=== PATIENT | female | born 1985 | race Caucasian/White ===

== ENCOUNTER 2016-08-16 16:05 | Emergency (ER) | payer MEDICAID, SELFPAY ==
[2016-08-16] MEDS ORDERED: Naproxen 500 MG TAB ONE (18:56)
[2016-08-16] MEDS ORDERED: HYDROcodone/Acetaminophen 10/325 mg Tablet ONE (18:56)
[2016-08-16] MEDS ORDERED: Benzonatate 100 MG CAP ONE (18:56)
[2016-08-16] MEDS ORDERED: AMOXicillin 250 MG CAP ONE (18:56)
== END 2016-08-16 19:22 | disposition home or self-care (01) ==
LOC: MADERS 16:05
DX: J20.9 Acute bronchitis, unspecified (principal); I25.10 Atherosclerotic heart disease of native coronary artery without angina pectoris; I11.0 Hypertensive heart disease with heart failure; I50.9 Heart failure, unspecified; F41.9 Anxiety disorder, unspecified; F32.9 Major depressive disorder, single episode, unspecified
CPT/HCPCS: 99283

== ENCOUNTER 2016-10-28 15:06 | Emergency (ER) | payer MEDICAID ==
[2016-10-28] MEDS ORDERED: Acetaminophen/Codeine 30-300mg Tablet ONE ×2 (15:51)
== END 2016-10-28 16:03 | disposition home or self-care (01) ==
LOC: MADERS 15:06
DX: M54.41 Lumbago with sciatica, right side (principal); E66.9 Obesity, unspecified; I25.10 Atherosclerotic heart disease of native coronary artery without angina pectoris; I11.0 Hypertensive heart disease with heart failure; I50.9 Heart failure, unspecified; Z86.711 Personal history of pulmonary embolism; F41.9 Anxiety disorder, unspecified; F32.9 Major depressive disorder, single episode, unspecified; Z79.899 Other long term (current) drug therapy
CPT/HCPCS: 99283

== ENCOUNTER 2016-11-07 15:05 | Emergency (ER) | payer MEDICAID ==
[2016-11-07 16:18] LABS: Pregnancy Test - Urine (BHCG) Negative (Negative); Pregu Control Background? CLEAR/WHITE (CLR/WHITE); Pregu Control Bar Appear? YES (CONTROL BAR); Specific Gravity 1.025 (1.002-1.036)
[2016-11-07 16:20] LABS: Wet Prep Clue Cells Clue Cells Absent (None Seen); Wet Prep Trichomonas Trichomonas Absent (None Seen)
[2016-11-07 16:21] LABS: Wet Prep Pathologist Review Spermatozoa Absent (None Seen); Wet Prep Spermatozoa 2nd Revie Agree with result (None Seen)
[2016-11-07] MEDS ORDERED: cefTRIAXone\\ROCEPHIN 1 GM VIAL ONE (16:24)
[2016-11-07] MEDS ORDERED: Lidocaine 1% 20 ML MDV ONE (16:24)
[2016-11-07 16:28] LABS: Bilirubin Negative (Negative); Blood, Urine Negative (Negative); Clarity Hazy (Clear); Glucose, Urine (Dipstick) Negative (Negative); Leukocyte Trace (Negative); Nitrite Negative (Negative); Protein, Urine (Dipstick) Negative (Neg-Trace); Specific Gravity, Urine 1.025 (1.005-1.030); Urobilinogen 0.2 mg/dL (0.2-1.0); pH, Urine 5.5 (5.0-9.0)
[2016-11-07 16:29] LABS: Bacteria/HPF 3+ HPF (None Seen); RBC/HPF 0-3 HPF (0-3)
[2016-11-10 22:59] LABS: Chlamydia by PCR Not Detected (NotDetected); GC by PCR Not Detected (NotDetected)
== END 2016-11-07 17:30 | disposition home or self-care (01) ==
LOC: MADERS 15:05
DX: N73.9 Female pelvic inflammatory disease, unspecified (principal); I25.10 Atherosclerotic heart disease of native coronary artery without angina pectoris; I11.0 Hypertensive heart disease with heart failure; I50.9 Heart failure, unspecified; I42.0 Dilated cardiomyopathy; F41.0 Panic disorder [episodic paroxysmal anxiety]; F32.9 Major depressive disorder, single episode, unspecified; Z79.899 Other long term (current) drug therapy
CPT/HCPCS: 81003; 81015; 81025; 87077; 87086; 87186; 87210; 87491; 87591; 96372; J0696; J2001

== ENCOUNTER 2016-12-20 17:25 | Emergency (ER) | payer OTHER ==
[2016-12-20] MEDS ORDERED: Acetaminophen 325 MG TAB ONE (18:27)
--- NOTE | 2016-12-20 18:50 | RAD ---
RIGHT HIP TWO VIEWS: History: Hip pain. FINDINGS: No evidence of fracture. Femoral head contour is normal. No significant degenerative change. IMPRESSION: No acute abnormality identified. POS: [facility]
== END 2016-12-20 19:15 | disposition home or self-care (01) ==
LOC: MADERS 17:25
DX: R10.31 Right lower quadrant pain (principal); E66.9 Obesity, unspecified; I25.10 Atherosclerotic heart disease of native coronary artery without angina pectoris; I11.0 Hypertensive heart disease with heart failure; I42.9 Cardiomyopathy, unspecified; I50.20 Unspecified systolic (congestive) heart failure; Z86.711 Personal history of pulmonary embolism; F41.0 Panic disorder [episodic paroxysmal anxiety]; F32.9 Major depressive disorder, single episode, unspecified

== ENCOUNTER 2017-08-29 16:00 | Emergency (ER) | payer OTHER | END 2017-08-29 16:51 | disposition home or self-care (01) | LOC: MADERS 16:00 | DX: S46.811A Strain of other muscles, fascia and tendons at shoulder and upper arm level, right arm, initial encounter (principal); S16.1XXA Strain of muscle, fascia and tendon at neck level, initial encounter; E66.9 Obesity, unspecified; I25.10 Atherosclerotic heart disease of native coronary artery without angina pectoris; I11.0 Hypertensive heart disease with heart failure; I50.20 Unspecified systolic (congestive) heart failure; F41.9 Anxiety disorder, unspecified; F32.9 Major depressive disorder, single episode, unspecified; X58.XXXA Exposure to other specified factors, initial encounter; Y93.H2 Activity, gardening and landscaping | CPT/HCPCS: 99283 ==

== ENCOUNTER 2017-09-13 16:59 | Emergency (ER) | payer OTHER | END 2017-09-13 20:33 | disposition home or self-care (01) | LOC: MADERS 16:59 | DX: J06.9 Acute upper respiratory infection, unspecified (principal); I25.10 Atherosclerotic heart disease of native coronary artery without angina pectoris; E66.9 Obesity, unspecified; I11.0 Hypertensive heart disease with heart failure; I50.9 Heart failure, unspecified; Z86.711 Personal history of pulmonary embolism | CPT/HCPCS: 87081; 87430; 99283 ==

== ENCOUNTER 2017-11-11 15:06 | Emergency (ER) | payer OTHER ==
--- NOTE | 2017-11-11 15:51 | RAD ---
TWO VIEWS CHEST: Comparison: 01-01-16 History: Cough for three weeks. FINDINGS: Two views of the chest show normal sized cardiomediastinal silhouette. There is no evidence of consol idation, mass, or pleural effusion. The bones are unremarkable. IMPRESSION: No evidence of acute cardiopulmonary disease. POS: [facility]
--- NOTE | 2017-11-11 16:11 | RAD ---
SINGLE WATER'S VIEW OF THE SINUSES: Comparison: None. History: Cough with sinus pressure and drainage for three weeks. FINDINGS: A single water's view of the sinuses shows no evidence of sinus opacification. The maxillary and fron bouchra sinuses are well aerated. The density of the bones surrounding the sinuses are normal without sig nificant sclerotic change. IMPRESSION: No evidence of sinus opacification. POS: [facility]
== END 2017-11-11 16:00 | disposition home or self-care (01) ==
LOC: MADERS 15:06
DX: J45.909 Unspecified asthma, uncomplicated (principal); J32.9 Chronic sinusitis, unspecified; E66.9 Obesity, unspecified; I25.10 Atherosclerotic heart disease of native coronary artery without angina pectoris; I11.0 Hypertensive heart disease with heart failure; I50.9 Heart failure, unspecified; Z86.711 Personal history of pulmonary embolism; F41.9 Anxiety disorder, unspecified; F32.9 Major depressive disorder, single episode, unspecified; Z79.899 Other long term (current) drug therapy
CPT/HCPCS: 70210; 71046

== ENCOUNTER 2017-12-21 17:00 | Emergency (ER) | payer OTHER ==
[2017-12-21] MEDS ORDERED: Acetaminophen/Codeine 30-300mg Tablet ONE (17:37)
[2017-12-21] MEDS ORDERED: Cyclobenzaprine 10 MG TAB ONE (17:37)
== END 2017-12-21 17:40 | disposition home or self-care (01) ==
LOC: MADERS 17:00
DX: S39.012A Strain of muscle, fascia and tendon of lower back, initial encounter (principal); I11.0 Hypertensive heart disease with heart failure; I50.9 Heart failure, unspecified; F32.9 Major depressive disorder, single episode, unspecified; F41.0 Panic disorder [episodic paroxysmal anxiety]; F17.210 Nicotine dependence, cigarettes, uncomplicated; E66.9 Obesity, unspecified; I25.10 Atherosclerotic heart disease of native coronary artery without angina pectoris; Z79.891 Long term (current) use of opiate analgesic; Z79.899 Other long term (current) drug therapy; X50.1XXA Overexertion from prolonged static or awkward postures, initial encounter
CPT/HCPCS: 99283

== ENCOUNTER 2018-03-22 15:45 | Emergency (ER) | payer OTHER ==
[2018-03-22 16:21] LABS: Pregu Control Background? CLEAR/WHITE (CLR/WHITE); Pregu Control Bar Appear? YES (CONTROL BAR); Specific Gravity 1.028 (1.002-1.036)
[2018-03-22 16:23] LABS: Pregnancy Test - Urine (BHCG) Negative (Negative)
[2018-03-22] MEDS ORDERED: Dexamethasone 4 MG TAB ONE (16:50)
[2018-03-22] MEDS ORDERED: Benzonatate 100 MG CAP ONE (16:50)
--- NOTE | 2018-03-22 17:39 | RAD ---
CHEST TWO VIEWS 03/22/18 COMPARISON: 11/11/17. HISTORY: Cough. FINDINGS: Normal cardiac silhouette. Pulmonary vessels and hilum are normal. Costophrenic angles are clear. No consolidation or mass. No pneumothorax or osseous abnormalities. IMPRESSION: No acute cardiopulmonary process. POS: [facility]
== END 2018-03-22 16:55 | disposition home or self-care (01) ==
LOC: MADERS 15:45
DX: J40 Bronchitis, not specified as acute or chronic (principal); E66.9 Obesity, unspecified; I25.10 Atherosclerotic heart disease of native coronary artery without angina pectoris; I11.0 Hypertensive heart disease with heart failure; I50.9 Heart failure, unspecified; Z86.711 Personal history of pulmonary embolism; F32.9 Major depressive disorder, single episode, unspecified; F41.0 Panic disorder [episodic paroxysmal anxiety]; Z79.899 Other long term (current) drug therapy
CPT/HCPCS: 71046; 81025; J8540

== ENCOUNTER 2018-10-26 15:22 | Emergency (ER) | payer OTHER ==
[2018-10-26] MEDS ORDERED: Cyclobenzaprine 10 MG TAB ONE (15:46)
== END 2018-10-26 16:06 | disposition home or self-care (01) ==
LOC: MADERS 15:22
DX: S16.1XXA Strain of muscle, fascia and tendon at neck level, initial encounter (principal); I25.10 Atherosclerotic heart disease of native coronary artery without angina pectoris; I11.0 Hypertensive heart disease with heart failure; I50.9 Heart failure, unspecified; F41.0 Panic disorder [episodic paroxysmal anxiety]; F32.9 Major depressive disorder, single episode, unspecified; E66.9 Obesity, unspecified; Z79.51 Long term (current) use of inhaled steroids; Z86.711 Personal history of pulmonary embolism; Z79.891 Long term (current) use of opiate analgesic; Z79.899 Other long term (current) drug therapy; X50.1XXA Overexertion from prolonged static or awkward postures, initial encounter
CPT/HCPCS: 99283

== ENCOUNTER 2020-06-07 19:00 | Emergency (ER) | payer OTHER ==
[2020-06-07 19:36] LABS: Bilirubin Negative (Negative); Blood, Urine Trace (Negative); Glucose, Urine (Dipstick) Negative (Negative); Ketone, Urine 15 mg/dL (Negative); Leukocyte Trace (Negative); Nitrite Negative (Negative); Protein, Urine (Dipstick) Negative (Neg-Trace)
[2020-06-07 19:38] LABS: Bacteria/HPF 1+ HPF (None Seen); Clarity Hazy (Clear); RBC/HPF 0-3 HPF (0-3); WBC/HPF 0-3 HPF (0-3)
[2020-06-07 19:39] LABS: Pregnancy Test - Urine (BHCG) Negative (Negative); Pregu Control Background? CLEAR/WHITE (CLR/WHITE); Pregu Control Bar Appear? YES (CONTROL BAR)
--- NOTE | 2020-06-07 20:10 | CT ---
CT of abdomen and pelvis: 06/07/2020 COMPARISON: None HISTORY: Right-sided flank pain TECHNIQUE: Axial CT imaging at 5 mm intervals from lung bases through pubic symphysis without contras t. Coronal reformatted imaging obtained. FINDINGS: Lack of contrast media limits assessment of the viscera, bowel, vascular structures, and fo r lymphadenopathy. The imaged lung bases are unremarkable. No free intraperitoneal air or fluid. Cholecystectomy clips a re noted. The hepatic parenchyma is diffusely hypodense, suggesting hepatic steatosis. The spleen, pancreas, an d adrenal glands are unremarkable. There is no nephrolithiasis or evidence of hydronephrosis/obstructive uropathy on either side. Limited evaluation of the bowel is unremarkable. No acute osseous abnormality. IMPRESSION: No nephrolithiasis or evidence of obstructive uropathy.
[2020-06-07] MEDS ORDERED: Acetaminophen 500 MG TAB ONE (20:18)
== END 2020-06-07 20:26 | disposition home or self-care (01) ==
LOC: MADERS 19:00
DX: R10.9 Unspecified abdominal pain (principal); I11.0 Hypertensive heart disease with heart failure; I50.9 Heart failure, unspecified; E66.9 Obesity, unspecified; Z86.711 Personal history of pulmonary embolism; Z79.899 Other long term (current) drug therapy
CPT/HCPCS: 74176; 81003; 81015; 81025

== ENCOUNTER 2021-01-05 18:14 | Emergency (ER) | payer OTHER ==
[~2021-01-05 18:14] MED LIST: Iopamidol 370 76% 125 ML VIAL FS ONE
[2021-01-05 19:42] LABS: #Basophils 0.1 thou/uL (0.0-0.2); #Lymphocytes 0.4 thou/uL (1.20-3.40); #Monocytes 0.5 thou/uL (0.11-0.59); #Neutrophils 5.1 thou/uL (1.40-6.50); %Basophils 1.2 % (0.0-1.0); %Eosinophils 0.3 % (0.0-10.0); %Monocytes 7.7 % (0.0-10.0); %Neutrophils 83.7 % (42.0-75.0); Hemoglobin 15.2 g/dL (12.0-16.0); Mean Corpuscular HGB CONC 33.5 g/dL (32.0-36.0); Mean Corpuscular Hemoglobin 35.5 pg (27.0-31.0); Mean Corpuscular Volume 105.8 fL (78.0-98.0); Mean Platelet Volume 7.4 fL (7.4-10.4); Platelet Count 168 thou/uL (130-400); RBC Distribution Width 11.6 % (11.5-14.5); Red Blood Cell (RBC) Count 4.29 mill/uL (4.20-5.40)
[2021-01-05 19:49] LABS: Macrocytosis SLIGHT = 6-15 cells (100X) (0-5/hpf)
[2021-01-05 19:54] LABS: ALT (SGPT) 163 U/L (8-55); AST (SGOT) 144 U/L (5-34); Albumin 3.8 g/dL (3.5-5.0); Alkaline Phosphatase 100 U/L (40-110); Anion Gap 12 mmol/L (10-20); BUN (Urea Nitrogen) 5 mg/dL (7.0-18.7); Bilirubin, Total 1.3 mg/dL (0.2-1.2); Calc. Creatinine Clearance 0 mL/min (70-130); Calcium 9.5 mg/dL (7.8-10.44); Carbon Dioxide 27 mmol/L (22-29); Chloride 102 mmol/L (98-107); Globulin 3.5 g/dL (2.4-3.5); Glucose 125 mg/dL (70-105); Potassium 4.2 mmol/L (3.5-5.1); Protein, Total 7.3 g/dL (6.0-8.3); Sodium 137 mmol/L (136-145)
[2021-01-05 20:16] LABS: BHCG - Serum Negative (NEGATIVE); Pregs Control Background? CLEAR/WHITE (CLR/WHITE); Pregs Control Bar Appear? YES (CONTROL BAR)
[2021-01-05] MEDS ORDERED: Acetaminophen 500 MG TAB ONE ×2 (20:38→20:41)
[2021-01-05] MEDS ORDERED: methylPREDNISolone Sod Succ/PF 125 MG/2 ML VIAL ONE (20:38)
[2021-01-05] MEDS ORDERED: Ondansetron PF 4 MG/2 ML Vial ONE (20:38)
== END 2021-01-05 20:28 | disposition home or self-care (01) ==
LOC: MADERS 18:14
DX: R06.00 Dyspnea, unspecified (principal); R07.89 Other chest pain; T50.B95A Adverse effect of other viral vaccines, initial encounter; I25.10 Atherosclerotic heart disease of native coronary artery without angina pectoris; I42.9 Cardiomyopathy, unspecified; I11.0 Hypertensive heart disease with heart failure; I42.0 Dilated cardiomyopathy; I50.20 Unspecified systolic (congestive) heart failure; E66.9 Obesity, unspecified; Z68.42 Body mass index [BMI] 45.0-49.9, adult; Z79.899 Other long term (current) drug therapy
CPT/HCPCS: 36415; 71275; 80053; 83880; 84484; 84703; 85025; 85379; 96374; 96375; J2405; J2930; Q9967

== ENCOUNTER 2021-03-06 18:01 | Emergency (ER) | payer OTHER | END 2021-03-06 19:30 | disposition home or self-care (01) | LOC: MADERS 18:01 | DX: J06.9 Acute upper respiratory infection, unspecified (principal); I11.0 Hypertensive heart disease with heart failure; I50.9 Heart failure, unspecified; Z79.899 Other long term (current) drug therapy | CPT/HCPCS: 99283 ==

== ENCOUNTER 2021-03-21 17:11 | Emergency (ER) | payer OTHER ==
[2021-03-21 17:37] LABS: Bilirubin Small (Negative); Blood, Urine Large (Negative); Glucose, Urine (Dipstick) Negative (Negative); Ketone, Urine 15 mg/dL (Negative); Leukocyte Small (Negative); Nitrite Positive (Negative); Protein, Urine (Dipstick) > or equal to 300 mg/dL (Neg-Trace); Specific Gravity, Urine 1.025 (1.005-1.030); pH, Urine 8.5 (5.0-9.0)
[2021-03-21 17:39] LABS: Clarity Cloudy (Clear)
[2021-03-21 17:40] LABS: Pregnancy Test - Urine (BHCG) Negative (Negative); Pregu Control Background? CLEAR/WHITE (CLR/WHITE); Pregu Control Bar Appear? YES (CONTROL BAR); Specific Gravity 1.025 (1.002-1.036)
[2021-03-21 17:42] LABS: RBC/HPF Greater than 50 HPF (0-3); Squamous Epithelial 0-3 HPF (0-3); WBC/HPF Greater Than 50 HPF (0-3)
[2021-03-21 17:43] LABS: Bacteria/HPF Rare-Few HPF (None Seen)
[2021-03-21] MEDS ORDERED: Ondansetron ODT 4 MG TAB ONE (17:46)
[2021-03-21] MEDS ORDERED: cefTRIAXone\\ROCEPHIN 2 GM VIAL ONE (18:06)
[2021-03-21] MEDS ORDERED: Sodium Chloride 0.9% 100 ML ONE (18:06)
[2021-03-21] MEDS ORDERED: Sodium Chloride 0.9% 1,000 ML ONE (18:06)
[2021-03-21 18:28] LABS: #Basophils 0.1 thou/uL (0.0-0.2); #Eosinphils 0.3 thou/uL (0.0-0.7); #Lymphocytes 1.6 thou/uL (1.20-3.40); #Monocytes 0.6 thou/uL (0.11-0.59); #Neutrophils 7.5 thou/uL (1.40-6.50); %Basophils 1.2 % (0.0-1.0); %Eosinophils 2.7 % (0.0-10.0); %Lymphocytes 15.9 % (21.0-51.0); %Monocytes 5.6 % (0.0-10.0); %Neutrophils 74.6 % (42.0-75.0); Hemoglobin 17.1 g/dL (12.0-16.0); Mean Corpuscular HGB CONC 33.4 g/dL (32.0-36.0); Mean Corpuscular Volume 107.7 fL (78.0-98.0); Mean Platelet Volume 6.8 fL (7.4-10.4); Platelet Count 190 thou/uL (130-400); RBC Distribution Width 10.9 % (11.5-14.5); Red Blood Cell (RBC) Count 4.74 mill/uL (4.20-5.40); White Blood Cell (WBC) Count 10.1 thou/uL (4.8-10.8)
[2021-03-21 18:33] LABS: ALT (SGPT) 175 U/L (8-55); AST (SGOT) 283 U/L (5-34); Albumin 4.3 g/dL (3.5-5.0); Alkaline Phosphatase 117 U/L (40-110); Anion Gap 14 mmol/L (10-20); BUN (Urea Nitrogen) 5 mg/dL (7.0-18.7); Bilirubin, Total 1.4 mg/dL (0.2-1.2); Calc. Creatinine Clearance 0 mL/min (70-130); Calcium 9.5 mg/dL (7.8-10.44); Carbon Dioxide 29 mmol/L (22-29); Chloride 101 mmol/L (98-107); Globulin 3.7 g/dL (2.4-3.5); Glucose 117 mg/dL (70-105); Lipase 20 U/L (8-78); Potassium 3.8 mmol/L (3.5-5.1); Sodium 140 mmol/L (136-145)
[2021-03-21 18:36] LABS: Macrocytosis SLIGHT = 6-15 cells (100X) (0-5/hpf)
== END 2021-03-21 19:22 | disposition home or self-care (01) ==
LOC: MADERS 17:11
DX: N12 Tubulo-interstitial nephritis, not specified as acute or chronic (principal); R74.01 Elevation of levels of liver transaminase levels; E66.9 Obesity, unspecified; J45.909 Unspecified asthma, uncomplicated; I25.10 Atherosclerotic heart disease of native coronary artery without angina pectoris; I11.0 Hypertensive heart disease with heart failure; I50.9 Heart failure, unspecified; Z86.711 Personal history of pulmonary embolism; Z79.899 Other long term (current) drug therapy
CPT/HCPCS: 36415; 74176; 80053; 81003; 81015; 81025; 83605; 83690; 85025; 87040; 87086; 94760; 96365; J0696; J3490; J7050; Q0162

== ENCOUNTER 2021-08-20 17:35 | Emergency (ER) | payer OTHER | END 2021-08-20 19:25 | disposition home or self-care (01) | LOC: MADERS 17:35 | DX: J01.00 Acute maxillary sinusitis, unspecified (principal); E66.9 Obesity, unspecified; I25.10 Atherosclerotic heart disease of native coronary artery without angina pectoris; I11.0 Hypertensive heart disease with heart failure; I50.9 Heart failure, unspecified; J45.909 Unspecified asthma, uncomplicated; Z86.711 Personal history of pulmonary embolism; Z79.899 Other long term (current) drug therapy | CPT/HCPCS: 99283 ==

== ENCOUNTER 2022-02-14 00:34 | Emergency (ER) | payer OTHER ==
[2022-02-14] MEDS ORDERED: methylPREDNISolone Sod Succ/PF 125 MG/2 ML VIAL ONE (01:05)
[2022-02-14] MEDS ORDERED: Acetaminophen 325 MG TAB ONE (01:05)
[2022-02-14 01:29] LABS: #Basophils 0.1 thou/uL (0.0-0.2); #Eosinphils 0.2 thou/uL (0.0-0.7); #Lymphocytes 3.7 thou/uL (1.20-3.40); #Monocytes 0.7 thou/uL (0.11-0.59); #Neutrophils 3.2 thou/uL (1.40-6.50); %Basophils 1.4 % (0.0-1.0); %Eosinophils 2.6 % (0.0-10.0); %Lymphocytes 46.8 % (21.0-51.0); %Monocytes 8.9 % (0.0-10.0); %Neutrophils 40.3 % (42.0-75.0); Hemoglobin 16.2 g/dL (12.0-16.0); Mean Corpuscular HGB CONC 33.3 g/dL (32.0-36.0); Mean Corpuscular Hemoglobin 34.6 pg (27.0-31.0); Mean Corpuscular Volume 103.8 fL (78.0-98.0); Mean Platelet Volume 6.7 fL (7.4-10.4); Platelet Count 222 thou/uL (130-400); RBC Distribution Width 11.7 % (11.5-14.5); RBC Morphology Normal; Red Blood Cell (RBC) Count 4.69 mill/uL (4.20-5.40); White Blood Cell (WBC) Count 7.9 thou/uL (4.8-10.8)
[2022-02-14 01:37] LABS: ALT (SGPT) 108 U/L (8-55); AST (SGOT) 114 U/L (5-34); Albumin 4.3 g/dL (3.5-5.0); Alkaline Phosphatase 113 U/L (40-110); Anion Gap 16 mmol/L (10-20); BUN (Urea Nitrogen) 6 mg/dL (7.0-18.7); Bilirubin, Total 0.7 mg/dL (0.2-1.2); Calc. Creatinine Clearance 0 mL/min (70-130); Calcium 9.6 mg/dL (7.8-10.44); Carbon Dioxide 25 mmol/L (22-29); Chloride 102 mmol/L (98-107); Estimated GFR 102; Globulin 3.8 g/dL (2.4-3.5); Glucose 111 mg/dL (70-105); Magnesium 1.9 mg/dL (1.6-2.6); Potassium 3.5 mmol/L (3.5-5.1); Protein, Total 8.1 g/dL (6.0-8.3); Sodium 139 mmol/L (136-145)
== END 2022-02-14 02:10 | disposition home or self-care (01) ==
LOC: MADERS 00:34
DX: J02.9 Acute pharyngitis, unspecified (principal); R00.8 Other abnormalities of heart beat; E66.9 Obesity, unspecified; I25.10 Atherosclerotic heart disease of native coronary artery without angina pectoris; I11.0 Hypertensive heart disease with heart failure; I50.20 Unspecified systolic (congestive) heart failure; Z20.822 Contact with and (suspected) exposure to COVID-19; Z86.711 Personal history of pulmonary embolism; Z79.899 Other long term (current) drug therapy
CPT/HCPCS: 71045; 80053; 83735; 85025; 87081; 87430; 87804; 93005; 96374; J2930; U0003; U0005

== ENCOUNTER 2022-03-05 03:43 | Emergency (ER) | payer OTHER ==
[2022-03-05] MEDS ORDERED: Ondansetron PF 4 MG/2 ML Vial ONE (05:32)
[2022-03-05] MEDS ORDERED: Amoxicillin/Potassium Clav 875 MG TAB ONE (05:32)
[2022-03-05] MEDS ORDERED: Ondansetron ODT 4 MG TAB ONE (05:32)
[2022-03-05 05:55] LABS: #Basophils 0.1 thou/uL (0.0-0.2); #Eosinphils 0.2 thou/uL (0.0-0.7); #Lymphocytes 3.3 thou/uL (1.20-3.40); #Monocytes 0.6 thou/uL (0.11-0.59); #Neutrophils 2.6 thou/uL (1.40-6.50); %Basophils 1.4 % (0.0-1.0); %Eosinophils 3.5 % (0.0-10.0); %Lymphocytes 49.1 % (21.0-51.0); %Monocytes 8.1 % (0.0-10.0); %Neutrophils 37.9 % (42.0-75.0); Hemoglobin 15.7 g/dL (12.0-16.0); Macrocytosis MODERATE=16-30 cells (100X) (0-5/hpf); Mean Corpuscular HGB CONC 34.3 g/dL (32.0-36.0); Mean Corpuscular Hemoglobin 35.5 pg (27.0-31.0); Mean Corpuscular Volume 103.5 fl (78.0-98.0); Mean Platelet Volume 6.8 fL (7.4-10.4); Platelet Count 223 thou/uL (130-400); Platelet Morphology Comment Appears Adequate; RBC Distribution Width 12.1 % (11.5-14.5); Red Blood Cell (RBC) Count 4.43 mill/uL (4.20-5.40); White Blood Cell (WBC) Count 6.7 thou/uL (4.8-10.8)
[2022-03-05 06:03] LABS: ALT (SGPT) 147 U/L (8-55); AST (SGOT) 135 U/L (5-34); Albumin 4.1 g/dL (3.5-5.0); Alkaline Phosphatase 91 U/L (40-110); Anion Gap 19 mmol/L (10-20); BUN (Urea Nitrogen) 6 mg/dL (7.0-18.7); Bilirubin, Total 0.7 mg/dL (0.2-1.2); Calc. Creatinine Clearance 0 mL/min (70-130); Calcium 8.9 mg/dL (7.8-10.44); Carbon Dioxide 21 mmol/L (22-29); Chloride 106 mmol/L (98-107); Estimated GFR 118; Globulin 3.6 g/dL (2.4-3.5); Glucose 98 mg/dL (70-105); Lipase 22 U/L (8-78); Potassium 3.7 mmol/L (3.5-5.1); Protein, Total 7.7 g/dL (6.0-8.3); Sodium 142 mmol/L (136-145)
[2022-03-05 06:09] LABS: Bilirubin Negative (Negative); Blood, Urine Moderate (Negative); Clarity Clear (Clear); Glucose, Urine (Dipstick) Negative (Negative); Ketone, Urine Negative (Negative); Leukocyte Small (Negative); Nitrite Negative (Negative); Protein, Urine (Dipstick) Negative (Neg-Trace); Specific Gravity, Urine 1.015 (1.005-1.030); Urobilinogen 0.2 mg/dL (Less than 2); pH, Urine 6.5 (5.0-9.0)
[2022-03-05 06:17] LABS: Bacteria/HPF 1+ HPF (None Seen)
[2022-03-05 06:18] LABS: Pregnancy Test - Urine (BHCG) Negative (Negative); Pregu Control Background? CLEAR/WHITE (CLR/WHITE); Pregu Control Bar Appear? YES (CONTROL BAR); Specific Gravity 1.015 (1.002-1.036)
== END 2022-03-05 08:40 | disposition home or self-care (01) ==
LOC: MADERS 03:43
DX: K02.9 Dental caries, unspecified (principal); N83.201 Unspecified ovarian cyst, right side; I25.10 Atherosclerotic heart disease of native coronary artery without angina pectoris; I11.0 Hypertensive heart disease with heart failure; I50.9 Heart failure, unspecified; E66.9 Obesity, unspecified
CPT/HCPCS: 36415; 76856; 80053; 81003; 81015; 81025; 83690; 85025; 87077; 87086; 87186; J2405; Q0162

== ENCOUNTER 2022-04-09 20:27 | Emergency (ER) | payer OTHER ==
[2022-04-09] MEDS ORDERED: Sodium Chloride 0.9% 1,000 ML ONE (20:58)
[2022-04-09 21:17] LABS: Base Excess-Venous -0.3 mmol/L (-2.0 to 3.0); Bicarbonate (HCO3v) 24.2 mmol/L (22.0-28.0); CO2 Tension (PvCO2) 38.7 mmHg (42.0-51.0); Chloride 117 mmol/L (98-107); Hemoglobin - Calc 15.9 g/dL (12.0-16.0); Potassium 3.6 mmol/L (3.5-5.1); Sodium 147 mmol/L (138-145); T. Carbon Dioxide 25.4 mmol/L (22.0-28.0); vO2 Saturation-calc 93.3 % (60.0-85.0)
[2022-04-09 21:19] LABS: BHCG - Serum Negative (NEGATIVE); Pregs Control Background? CLEAR/WHITE (CLR/WHITE); Pregs Control Bar Appear? YES (CONTROL BAR)
[2022-04-09 21:26] LABS: ALT (SGPT) 244 U/L (8-55); AST (SGOT) 263 U/L (5-34); Albumin 4.3 g/dL (3.5-5.0); Alkaline Phosphatase 111 U/L (40-110); Anion Gap 19 mmol/L (10-20); BUN (Urea Nitrogen) 7 mg/dL (7.0-18.7); Bilirubin, Total 0.6 mg/dL (0.2-1.2); Calc. Creatinine Clearance 0 mL/min (70-130); Calcium 8.5 mg/dL (7.8-10.44); Carbon Dioxide 23 mmol/L (22-29); Chloride 109 mmol/L (98-107); Estimated GFR 116; Globulin 3.2 g/dL (2.4-3.5); Glucose 107 mg/dL (70-105); Potassium 3.7 mmol/L (3.5-5.1); Protein, Total 7.5 g/dL (6.0-8.3); Sodium 147 mmol/L (136-145)
[2022-04-09 21:28] LABS: Eosinophils 1 % (0-10); Hemoglobin 14.7 g/dL (12.0-16.0); Lymphocytes 50 % (21-51); MDiff Complete? YES; Macrocytosis SLIGHT = 6-15 cells (100X) (0-5/hpf); Mean Corpuscular HGB CONC 34.6 g/dL (32.0-36.0); Mean Corpuscular Hemoglobin 35.8 pg (27.0-31.0); Mean Corpuscular Volume 103.5 fl (78.0-98.0); Mean Platelet Volume 7.6 fL (7.4-10.4); Monocytes 7 % (0-10); Neutrophil 40 % (42-75); Platelet Count 248 10x3/uL (130-400); RBC Distribution Width 11.9 % (11.5-14.5); Red Blood Cell (RBC) Count 4.11 mill/uL (4.20-5.40); White Blood Cell (WBC) Count 8.1 10x3/uL (4.8-10.8)
[2022-04-09 21:55] LABS: Bilirubin Negative (Negative); Blood, Urine Large (Negative); Clarity Clear (Clear); Glucose, Urine (Dipstick) Negative (Negative); Ketone, Urine Negative (Negative); Leukocyte Negative (Negative); Nitrite Negative (Negative); Protein, Urine (Dipstick) Negative (Neg-Trace); Urobilinogen 0.2 mg/dL (Less than 2)
[2022-04-09 22:03] LABS: Bacteria/HPF None Seen HPF (None Seen); RBC/HPF Greater than 50 HPF (0-3); Transitional Epithelial 0-3 HPF (None Seen); WBC/HPF 0-3 HPF (0-3)
[2022-04-09 22:05] LABS: Amphetamine Not Detected (NotDetected); Barbiturates Screen Not Detected (NotDetected); Benzodiazepine Screen Not Detected (NotDetected); Cocaine Metabolite Screen Not Detected (NotDetected); Medtox Control Line Valid? VALID (VALID); Methadone Not Detected (NotDetected); Methamphetamine Not Detected (NotDetected); Opiate Screen Not Detected (NotDetected); Oxycodone Screen Not Detected (NotDetected); Phencyclidine (PCP) Not Detected (NotDetected); THC/Cannabinoid Screen Not Detected (NotDetected); Tricyclic Screen Not Detected (NotDetected)
[2022-04-09] MEDS ORDERED: Amoxicillin/Potassium Clav 875 MG TAB ONE (22:41)
[2022-04-09] MEDS ORDERED: Lidocaine 1% PF 5 ML VIAL ONE (23:32)
[2022-04-10 00:10] LABS: Acetaminophen Less than 10.0 mcg/mL (10.0-30.0); Salicylate Less than 8.0 mg/dL (15.0-30.0)
[2022-04-10 00:30] LABS: Alcohol 497 mg/dL (Less than 10)
[2022-04-10] MEDS ORDERED: Sodium Chloride 0.9% 1,000 ML ONE (00:40)
[2022-04-10] MEDS ORDERED: Acetaminophen 500 MG TAB ONE (05:55)
[2022-04-10 07:02] LABS: ALT (SGPT) 181 U/L (8-55); AST (SGOT) 180 U/L (5-34); Albumin 3.6 g/dL (3.5-5.0); Alkaline Phosphatase 92 U/L (40-110); Anion Gap 18 mmol/L (10-20); BUN (Urea Nitrogen) 6 mg/dL (7.0-18.7); Bilirubin, Total 0.4 mg/dL (0.2-1.2); Calc. Creatinine Clearance 0 mL/min (70-130); Calcium 7.8 mg/dL (7.8-10.44); Carbon Dioxide 23 mmol/L (22-29); Chloride 110 mmol/L (98-107); Estimated GFR 120; Globulin 2.8 g/dL (2.4-3.5); Glucose 82 mg/dL (70-105); Potassium 3.5 mmol/L (3.5-5.1); Protein, Total 6.4 g/dL (6.0-8.3); Sodium 147 mmol/L (136-145)
== END 2022-04-10 08:08 | disposition home or self-care (01) ==
LOC: MADERS 20:27
DX: F10.129 Alcohol abuse with intoxication, unspecified (principal); R41.82 Altered mental status, unspecified; I10 Essential (primary) hypertension; E66.9 Obesity, unspecified; J45.909 Unspecified asthma, uncomplicated; I11.0 Hypertensive heart disease with heart failure; I50.9 Heart failure, unspecified; I25.10 Atherosclerotic heart disease of native coronary artery without angina pectoris; Z79.899 Other long term (current) drug therapy
CPT/HCPCS: 36416; 51701; 70450; 71045; 80053; 80306; 80307; 81003; 81015; 82140; 82330; 82435; 82803; 84132; 84295; 84703; 85025; 93005; 96360; 96361; J7050

== ENCOUNTER 2022-06-04 08:50 | Emergency (ER) | payer OTHER ==
[2022-06-04] MEDS ORDERED: Lactated Ringer's 1,000 ML ONE (09:31)
[2022-06-04] MEDS ORDERED: Prochlorperazine 10 MG/2 ML VIAL ONE (09:31)
[2022-06-04 09:53] LABS: #Basophils 0.1 thou/uL (0.0-0.2); #Eosinphils 0.2 thou/uL (0.0-0.7); #Lymphocytes 1.9 thou/uL (1.20-3.40); #Monocytes 0.9 thou/uL (0.11-0.59); #Neutrophils 5.3 thou/uL (1.40-6.50); %Basophils 1.6 % (0.0-1.0); %Eosinophils 1.9 % (0.0-10.0); %Lymphocytes 22.5 % (21.0-51.0); %Monocytes 11.2 % (0.0-10.0); %Neutrophils 62.8 % (42.0-75.0); MDiff Complete? YES; Macrocytosis SLIGHT = 6-15 cells (100X) (0-5/hpf); Mean Corpuscular HGB CONC 35.5 g/dL (32.0-36.0); Mean Corpuscular Hemoglobin 35.7 pg (27.0-31.0); Mean Corpuscular Volume 100.7 fl (78.0-98.0); Mean Platelet Volume 7.2 fL (7.4-10.4); Platelet Count 254 10x3/uL (130-400); Platelet Morphology Comment Appears Adequate; RBC Distribution Width 10.7 % (11.5-14.5); White Blood Cell (WBC) Count 8.4 10x3/uL (4.8-10.8)
[2022-06-04 09:54] LABS: ALT (SGPT) 89 U/L (8-55); AST (SGOT) 72 U/L (5-34); Albumin 3.9 g/dL (3.5-5.0); Alkaline Phosphatase 110 U/L (40-110); Anion Gap 15 mmol/L (10-20); BUN (Urea Nitrogen) 4 mg/dL (7.0-18.7); Bilirubin, Total 1.1 mg/dL (0.2-1.2); Calc. Creatinine Clearance 0 mL/min (70-130); Calcium 9.7 mg/dL (7.8-10.44); Carbon Dioxide 24 mmol/L (22-29); Chloride 101 mmol/L (98-107); Estimated GFR 116; Globulin 3.7 g/dL (2.4-3.5); Glucose 104 mg/dL (70-105); INR-International Normal Ratio 1.1; Lipase 16 U/L (8-78); Magnesium 1.7 mg/dL (1.6-2.6); PTT 34.2 sec (22.9-36.1); Potassium 3.3 mmol/L (3.5-5.1); Protein, Total 7.6 g/dL (6.0-8.3); Prothrombin Time 14.8 sec (12.0-14.7); Sodium 137 mmol/L (136-145)
[2022-06-04 09:57] LABS: D-Dimer Test 0.63 *mcg/mL (0.27-0.43)
[2022-06-04 10:19] LABS: Pregnancy Test - Urine (BHCG) Negative (Negative); Pregu Control Background? CLEAR/WHITE (CLR/WHITE); Pregu Control Bar Appear? YES (CONTROL BAR)
[2022-06-04 10:23] LABS: Bilirubin Small (Negative); Blood, Urine Large (Negative); Clarity Clear (Clear); Glucose, Urine (Dipstick) Negative (Negative); Ketone, Urine Negative (Negative); Leukocyte Negative (Negative); Nitrite Negative (Negative); Protein, Urine (Dipstick) 30 mg/dL (Neg-Trace)
[2022-06-04 10:30] LABS: Bacteria/HPF Rare-Few HPF (None Seen); RBC/HPF Greater than 50 HPF (0-3); Squamous Epithelial 0-3 HPF (0-3); WBC/HPF 0-3 HPF (0-3)
[2022-06-04] MEDS ORDERED: Famotidine/PF 20 mg/2ml Vial ONE (10:46)
[2022-06-04] MEDS ORDERED: methylPREDNISolone Sod Succ/PF 125 MG/2 ML VIAL ONE (10:46)
[2022-06-04] MEDS ORDERED: Potassium Chloride 20 MEQ TAB ONE (10:46)
[2022-06-04] MEDS ORDERED: Benzonatate 100 MG CAP ONE (11:30)
== END 2022-06-04 11:40 | disposition left against medical advice (07) ==
LOC: MADERS 08:50
DX: U07.1 COVID-19 (principal); R07.9 Chest pain, unspecified; E87.6 Hypokalemia; H10.9 Unspecified conjunctivitis; R74.01 Elevation of levels of liver transaminase levels; R79.1 Abnormal coagulation profile; I11.0 Hypertensive heart disease with heart failure; I50.9 Heart failure, unspecified; I43 Cardiomyopathy in diseases classified elsewhere; E66.9 Obesity, unspecified; I25.10 Atherosclerotic heart disease of native coronary artery without angina pectoris; J45.909 Unspecified asthma, uncomplicated; Z86.711 Personal history of pulmonary embolism; Z79.899 Other long term (current) drug therapy
CPT/HCPCS: 71046; 80053; 81003; 81015; 81025; 83605; 83690; 83735; 84443; 84484; 85025; 85379; 85610; 85730; 87040; 93005; 94760; 96361; 96374; 96375; J0780; J2930; J7120; S0028

== ENCOUNTER 2022-06-24 13:10 | Emergency (ER) | payer OTHER | END 2022-06-24 14:09 | disposition home or self-care (01) | LOC: MADERS 13:10 | DX: R05.9 Cough, unspecified (principal); R50.9 Fever, unspecified; R51.9 Headache, unspecified; R09.81 Nasal congestion; R49.0 Dysphonia; I11.0 Hypertensive heart disease with heart failure; I50.20 Unspecified systolic (congestive) heart failure; E66.9 Obesity, unspecified; I25.10 Atherosclerotic heart disease of native coronary artery without angina pectoris; I42.0 Dilated cardiomyopathy; J45.909 Unspecified asthma, uncomplicated; Z79.899 Other long term (current) drug therapy ==

== ENCOUNTER 2023-05-26 17:38 | Emergency (ER) | payer MEDICAID, OTHER ==
[2023-05-26 18:44] LABS: INR-International Normal Ratio 1.6; Prothrombin Time 19.8 sec (12.0-14.7)
[2023-05-26 18:45] LABS: PTT 51.8 sec (22.9-36.1)
[2023-05-26 18:50] LABS: #Lymphocytes 0.8 thou/uL (1.20-3.40); #Monocytes 0.2 thou/uL (0.11-0.59); #Neutrophils 1.6 thou/uL (1.40-6.50); %Basophils 1.5 % (0.0-1.0); %Eosinophils 1.1 % (0.0-10.0); %Monocytes 8.1 % (0.0-10.0); %Neutrophils 58.4 % (42.0-75.0); Hematocrit 29.3 % (36.0-47.0); Hemoglobin 9.5 g/dL (12.0-16.0); Mean Corpuscular HGB CONC 32.4 g/dL (32.0-36.0); Mean Corpuscular Hemoglobin 31.2 pg (27.0-31.0); Mean Corpuscular Volume 96.2 fl (78.0-98.0); Mean Platelet Volume 7.8 fL (7.4-10.4); Platelet Adequacy Comment Appears Decreased; Platelet Count 38 10x3/uL (130-400); RBC Distribution Width 16.2 % (11.5-14.5); Red Blood Cell (RBC) Count 3.05 mill/uL (4.20-5.40); White Blood Cell (WBC) Count 2.7 10x3/uL (4.8-10.8)
[2023-05-26 18:53] LABS: ALT (SGPT) 23 U/L (8-55); AST (SGOT) 110 U/L (5-34); Albumin 3.1 g/dL (3.5-5.0); Alkaline Phosphatase 124 U/L (40-110); Anion Gap 13 mmol/L (10-20); BUN (Urea Nitrogen) 4 mg/dL (7.0-18.7); Bilirubin, Total 3.7 mg/dL (0.2-1.2); Calc. Creatinine Clearance 0 mL/min (70-130); Calcium 8.1 mg/dL (7.8-10.44); Carbon Dioxide 25 mmol/L (22-29); Chloride 107 mmol/L (98-107); Estimated GFR 120; Globulin 3.8 g/dL (2.4-3.5); Glucose 127 mg/dL (70-105); Protein, Total 6.9 g/dL (6.0-8.3); Sodium 142 mmol/L (136-145)
[2023-05-26] MEDS ORDERED: Potassium Chloride 20 MEQ TAB ONE (19:40)
[2023-05-26] MEDS ORDERED: Ondansetron ODT 4 MG TAB ONE (19:40)
[2023-05-26] MEDS ORDERED: Bacitracin 1 PK ONE (19:45)
[2023-05-26] MEDS ORDERED: Magnesium 2 GM/50 ML BAG (IN WATER) ONE (20:14)
[2023-05-27 11:47] LABS: HIV (1/2) Antibody/Antigen Non-Reactive (NonReactive); HIV 1/2 INDEX 0.19 S/CO (<1.00)
== END 2023-05-26 22:06 | disposition short-term general hospital (02) ==
LOC: MADERS 17:38
DX: R04.0 Epistaxis (principal); D69.6 Thrombocytopenia, unspecified; D64.9 Anemia, unspecified; I11.0 Hypertensive heart disease with heart failure; I50.9 Heart failure, unspecified; F17.290 Nicotine dependence, other tobacco product, uncomplicated
CPT/HCPCS: 36415; 70450; 80053; 85025; 85610; 85730; 87389; 93005; 96365; J3475; Q0162